=== PATIENT | male | born 1950 | race Caucasian/White ===

== ENCOUNTER 2021-12-13 08:14 | Emergency (ER) | payer MEDICARE, BC ==
[~2021-12-13] VITALS: Ht 177.8 cm; Wt 88.5 kg
[2021-12-13] MEDS ORDERED: ENAL5TA PO (08:24)
[2021-12-13] MEDS ORDERED: METF-839 PO (08:24)
[2021-12-13] MEDS ORDERED: CRES5TAB PO (08:24)
[2021-12-13] MEDS ORDERED: LIDOCAINE 2% 5ML JELLY UROJET TOP ONE (09:15)
[2021-12-13] MEDS ORDERED: FLOM0.4C39 PO (10:38)
[2021-12-13 10:47] VITALS: BP 134/71
== END 2021-12-13 11:34 | disposition home or self-care (01) ==
LOC: M ED 08:14
DX: R33.9 Retention of urine, unspecified (principal); N40.1 Benign prostatic hyperplasia with lower urinary tract symptoms; I10 Essential (primary) hypertension; E11.9 Type 2 diabetes mellitus without complications; Z79.899 Other long term (current) drug therapy; Z79.84 Long term (current) use of oral hypoglycemic drugs

== ENCOUNTER 2021-12-15 09:02 | Emergency (ER) | payer MEDICARE, BC ==
[~2021-12-15] VITALS: Ht 177.8 cm; Wt 87.9 kg
[~2021-12-15 09:02] MED LIST: CRES5TAB PO; ENAL5TA PO; FLOM0.4C39 PO; METF-839 PO
[2021-12-15] MEDS ORDERED: FINA5TAB2 (09:19)
[2021-12-15] MEDS ORDERED: CIPR500T39 (09:19)
[2021-12-15 10:15] LABS: HEMATOCRIT 37.7 % (42.0-52.0); HEMOGLOBIN 12.4 g/dl (13.5-17.5); MEAN CORPUSCULAR HEMOGLOBIN 29.7 pg (27.0-33.0); MEAN CORPUSCULAR HGB CONC 32.9 g/dl (32.0-36.5); MEAN CORPUSCULAR VOLUME 90.2 fl (80.0-96.0); PLATELET COUNT, AUTOMATED 217 10^3/uL (150-450); RED BLOOD COUNT 4.18 10^6/uL (4.30-6.10); WHITE BLOOD COUNT 8.2 10^3/uL (4.0-10.0)
[2021-12-15 10:38] LABS: BLOOD UREA NITROGEN 20 MG/DL (7-18); CALCIUM LEVEL 9.5 MG/DL (8.8-10.2); CARBON DIOXIDE LEVEL 26 MEQ/L (21-32); CHLORIDE LEVEL 112 MEQ/L (98-107); CREATININE FOR GFR 0.99 MG/DL (0.70-1.30); GLOMERULAR FILTRATION RATE > 60.0 (>49); GLUCOSE, FASTING 98 MG/DL (70-100); POTASSIUM SERUM 4.3 MEQ/L (3.5-5.1); SODIUM LEVEL 143 MEQ/L (136-145)
[2021-12-15 13:54] VITALS: BP 106/61
== END 2021-12-15 13:54 | disposition home or self-care (01) ==
LOC: M ED 09:02
DX: R31.0 Gross hematuria (principal); Z96.0 Presence of urogenital implants; E11.9 Type 2 diabetes mellitus without complications; E78.5 Hyperlipidemia, unspecified; R33.9 Retention of urine, unspecified; Z87.891 Personal history of nicotine dependence; Z79.899 Other long term (current) drug therapy; Z79.84 Long term (current) use of oral hypoglycemic drugs